=== PATIENT | male | born 1975 | race Caucasian/White ===

== ENCOUNTER 2019-02-11 15:11 | Emergency (ER) | payer SELFPAY ==
[~2019-02-11] VITALS: Ht 157.5 cm; Wt 72.7 kg
[2019-02-11] MEDS ORDERED: ACETAMINOPHEN 500MG TABLET PO ONE (17:30)
[2019-02-11] MEDS ORDERED: IBUPROFEN 800MG TABLET PO ONE (17:30)
[2019-02-11 19:06] VITALS: BP 90/48
== END 2019-02-11 19:06 | disposition home or self-care (01) ==
LOC: ER 15:11
DX: S52.511A Displaced fracture of right radial styloid process, initial encounter for closed fracture (principal); M25.531 Pain in right wrist; W11.XXXA Fall on and from ladder, initial encounter; Y93.9 Activity, unspecified; Y92.9 Unspecified place or not applicable
CPT/HCPCS: 29125; 73060; 73070; 73090; 73110; 99283; A4565

== ENCOUNTER 2019-06-30 08:53 | Emergency (ER) | payer SELFPAY ==
[~2019-06-30] VITALS: Ht 157.5 cm; Wt 62.0 kg
[2019-06-30] MEDS ORDERED: FLUORESCEIN SODIUM 1MG/STRIP BOTHEYE ONE (10:30)
[2019-06-30] MEDS ORDERED: TETRACAINE 0.5% OPHTH DROPS 4ML LEFTEYE ONE (10:30)
[2019-06-30] MEDS ORDERED: IBUPROFEN 600MG TABLET PO ONE (12:30)
[2019-06-30 12:55] VITALS: BP 107/60
== END 2019-06-30 12:57 | disposition home or self-care (01) ==
LOC: ER 08:53
DX: H57.12 Ocular pain, left eye (principal); L53.9 Erythematous condition, unspecified; E11.9 Type 2 diabetes mellitus without complications
CPT/HCPCS: 99283

== ENCOUNTER 2022-04-10 11:22 | Emergency (ER) | payer MEDICAID ==
[~2022-04-10] VITALS: Ht 175.3 cm; Wt 79.0 kg
[~2022-04-10 11:22] MED LIST: CEPH500C2 PO; IBUP-2029 PO; MUPI1OIN4 TP; SULF1TAB48 PO
[2022-04-10 11:36] VITALS: BP 106/67
== END 2022-04-10 13:04 | disposition home or self-care (01) ==
LOC: ER 11:22
DX: Z48.00 Encounter for change or removal of nonsurgical wound dressing (principal)
CPT/HCPCS: 99281